=== PATIENT | male | born 1945 | race Caucasian/White ===

== ENCOUNTER 2019-06-24 17:17 | Emergency (ER) | payer MEDICARE ==
[~2019-06-24 17:17] MED LIST: Iopamidol 370 76% 100 ML VIAL ONE
[2019-06-24 18:27] LABS: #Basophils 0.1 thou/uL (0.0-0.2); #Lymphocytes 1.5 thou/uL (1.20-3.40); #Monocytes 0.7 thou/uL (0.11-0.59); #Neutrophils 15.1 thou/uL (1.40-6.50); %Basophils 0.6 % (0.0-1.0); %Eosinophils 0.2 % (0.0-10.0); %Lymphocytes 8.7 % (21.0-51.0); %Monocytes 3.8 % (0.0-10.0); %Neutrophils 86.8 % (42.0-75.0); Hemoglobin 14.2 g/dL (14.0-18.0); Mean Corpuscular HGB CONC 32.6 g/dL (32.0-36.0); Mean Corpuscular Hemoglobin 31.4 pg (27.0-31.0); Mean Corpuscular Volume 96.5 fL (78.0-98.0); Mean Platelet Volume 6.4 fL (7.4-10.4); Platelet Count 251 thou/uL (130-400); RBC Distribution Width 10.5 % (11.5-14.5); Red Blood Cell (RBC) Count 4.53 mill/uL (4.70-6.10); White Blood Cell (WBC) Count 17.4 thou/uL (4.8-10.8)
[2019-06-24 18:40] LABS: CRP (Inflammatory) Less than 0.50 mg/dL (= or < 0.5)
[2019-06-24 18:42] LABS: ALT (SGPT) 55 U/L (8-55); AST (SGOT) 37 U/L (5-34); Albumin 4.8 g/dL (3.4-4.8); Alkaline Phosphatase 94 U/L (40-110); Anion Gap 17 mmol/L (10-20); BUN (Urea Nitrogen) 31 mg/dL (8.4-25.7); Bilirubin, Total 0.9 mg/dL (0.2-1.2); Calc. Creatinine Clearance 0 mL/min (70-130); Calcium 10.1 mg/dL (7.8-10.44); Carbon Dioxide 21 mmol/L (23-31); Chloride 106 mmol/L (98-107); Estimated GFR-MDRD 53; Glucose 156 mg/dL (83-110); Lipase 86 U/L (8-78); Potassium 4.4 mmol/L (3.5-5.1); Protein, Total 7.8 g/dL (5.8-8.1); Sodium 140 mmol/L (136-145)
[2019-06-24 18:46] LABS: Bilirubin Negative (Negative); Blood, Urine Negative (Negative); Clarity Clear (Clear); Glucose, Urine (Dipstick) Negative (Negative); Leukocyte Negative (Negative); Nitrite Negative (Negative); Protein, Urine (Dipstick) Negative (Neg-Trace); Urobilinogen 0.2 mg/dL (Less than 2)
--- NOTE | 2019-06-24 18:57 | RAD ---
Acute abdominal series INDICATION: Constipation COMPARISON: None. FINDINGS: CHEST: LUNGS: Clear. Cardiomediastinal silhouette: Normal. Pleural effusion or pneumothorax: Negative. Pneumoperitoneum: Negative. ABDOMEN: Bowel gas pattern: There is a prominent amount retained stool within the colon and rectum Abnormal calcifications: There are [id number] calcifications involving the abdominal pelvic vas culature. Osseous structures: No acute osseous abnormality is demonstrated. Additional findings: None. IMPRESSION: 1. Prominent amount retained stool within the colon
--- NOTE | 2019-06-24 20:18 | CT ---
CT ABDOMEN AND PELVIS WITH IV CONTRAST: History: Abdominal pain, constipation. Leucocytosis. Comparison: None. FINDINGS: Mild dependent bibasilar atelectasis is present. Vascular calcifications are seen in the coronary art eries as well as involving the abdominal aorta and iliac arteries. There is suggestion of a diverticulum involving the most distal esophagus above the level of the GE j unction. This is not thought to be related to a hiatal hernia. A 2 cm hypodense lesion is seen in the midportion of the left kidney which cannot be characterized as a simple cyst based on this exam. Follow up CT scan with and without IV contrast is recommended. Kid neys otherwise demonstrate a normal CT appearance bilaterally. There is a calcification associated with the right adrenal gland which may be related to prior adren al hemorrhage or secondary to prior granulomatous disease. The adrenal glands otherwise demonstrate a normal CT appearance. The liver, spleen, pancreas, and urinary bladder demonstrate a normal CT appearance. There is colonic diverticulosis and a small amount of retained fecal material is seen throughout the colon. Loops of small bowel are normal in caliber. The appendix is not visualized, but there are no s econdary signs to suggest appendicitis. There is mild nonspecific inflammatory stranding seen in a presacral location. No free fluid, fluid collection or lymphadenopathy is seen in the abdomen or pelvis. There is small fat containing right inguinal canal. Degenerative changes are seen in the spine. IMPRESSION: 1. Hypodense lesion in the left kidney which cannot be characterized as a simple cyst. Follow up CT e xam with and without IV contrast is recommended for further characterization. 2. Colonic diverticulosis with a small amount of retained fecal material seen throughout the colon. 3. Mild nonspecific presacral inflammatory stranding. Small amount of retained fecal material is seen within the colon. 4. Suggestion of diverticulum involving the distal esophagus. 5. Vascular calcifications. POS: [facility]
[2019-06-24] MEDS ORDERED: Cipro 250 MG TAB ONE (21:28)
[2019-06-24] MEDS ORDERED: Tamsulosin HCl 0.4 MG CAP ONE (21:28)
== END 2019-06-24 21:55 | disposition home or self-care (01) ==
LOC: MADERS 17:17
DX: R33.9 Retention of urine, unspecified (principal); K59.00 Constipation, unspecified; I10 Essential (primary) hypertension; N28.89 Other specified disorders of kidney and ureter
CPT/HCPCS: 36415; 51702; 74022; 74177; 80053; 81003; 82150; 83690; 85025; 86140; Q9967

== ENCOUNTER 2019-06-28 10:22 | Outpatient (CLI) | payer MEDICARE ==
[2019-06-28] MEDS ORDERED: Iopamidol 370 76% 100 ML VIAL ONE (11:31)
--- NOTE | 2019-06-28 11:38 | CT ---
EXAM: CT Abdomen Pelvis W WO con PROVIDED CLINICAL HISTORY: Left kidney lesion/mass. COMPARISON: 06/24/2019 FINDINGS: A 2 cm increased density exophytic lesion is seen at the anterior aspect midportion left kidney which does not demonstrate appreciable enhancement between the pre and postcontrast images. Findings are most likely attributable to a Bosniak type II renal cystic lesion. Calcified granuloma seen at the right lung base. Lung bases are otherwise clear. The liver, spleen, pancreas, bilateral adrenal glands, and right kidney demonstrate a normal CT appea lucinda. Urinary bladder is distended and has a normal CT appearance. Scattered colonic diverticuli are seen without CT evidence of diverticulitis. The presacral edema/inflammatory changes on the prior exam have resolved. The moderate amount retaine d fecal material seen in the rectum on the prior exam is also no longer visualized. Loops of small bowel are normal in caliber. A distal esophageal diverticulum versus redundancy in the esophagus due to hiatal hernia is present. Vascular calcification are seen in the visualized coronary arteries as well as involving the abdomina l aorta and iliac arteries. No other interval change. IMPRESSION: 1. Bosniak type II left renal cystic lesion. 2. Resolution of presacral edema/inflammatory changes. 3. Colonic diverticulosis. 4. Findings which are again thought to be related to either a distal esophageal diverticulum or redun jessa in the distal esophagus secondary to small hiatal hernia. 5. Vascular calcifications
== END 2019-06-28 10:23 | disposition home or self-care (01) ==
LOC: MADCT 10:22
PROVIDERS: ATTEND Family Medicine
DX: N28.89 Other specified disorders of kidney and ureter (principal); N28.1 Cyst of kidney, acquired; K57.30 Diverticulosis of large intestine without perforation or abscess without bleeding; I70.90 Unspecified atherosclerosis
CPT/HCPCS: 74178; Q9967